=== PATIENT | female | born 1990 | race Two or more races ===

== ENCOUNTER 2016-10-20 12:38 | Emergency (ER) | payer OTHER ==
[2016-10-20] MEDS ORDERED: IBUPROFEN 600 MG TABLET ONE (14:04)
== END 2016-10-20 14:15 | disposition home or self-care (01) ==
LOC: ED 12:38
DX: R51 Headache (principal); S16.1XXA Strain of muscle, fascia and tendon at neck level, initial encounter; S29.012A Strain of muscle and tendon of back wall of thorax, initial encounter; V43.62XA Car passenger injured in collision with other type car in traffic accident, initial encounter; Y92.410 Unspecified street and highway as the place of occurrence of the external cause